=== PATIENT | male | born 1985 | race Caucasian/White ===

== ENCOUNTER 2016-08-15 05:41 | Day surgery (SDC) | payer OTHER ==
[2016-08-06 13:59] VITALS: BMI 32.9
--- NOTE | 2016-08-15 06:47 | HP ---
Admitting History and Physical - Admission History of Present Illness: patient is a 31 y/o male with a past medical history of anxiety and depression, patient presents for ECT his last ECT was 07/30/16. patient reports a decrease in his noritryptyline. he reports feelings of depression and suicidal ideation. However, pt reports he does not have a plan. he denies any visual or auditory hallucinations or homicidal ideation. patient denies any recent illnesses or hospitalization. History Source: Patient Limitations to Obtaining History: No Limitations - Past Medical History Cardiovascular: Yes: Murmur, Other - Smoking History Smoking history: Former smoker Have you smoked in the past 12 months: No If you are a former smoker, when did you quit?: 2014 - Alcohol/Substance Use Hx Alcohol Use: No (NONE IN 3 YRS/ADMITTED DRINKING WAS A PROBLEM) History of Substance Use: reports: Marijuana - Social History Usual Living Arrangement: Yes: With Spouse ADL: Independent History of Recent Travel: No Home Medications - Allergies Allergies/Adverse Reactions: Allergies Allergy/AdvReac Type Severity Reaction Status Date / Time No Known Drug Allergies Allergy Verified 07/10/16 06:24 - Home Medications Home Medications: Ambulatory Orders Cariprazine HCl [Vraylar] 3 mg PO HS 06/06/16 Clonazepam [Klonopin] 2 mg PO PRN PRN 06/06/16 Nortriptyline HCl 150 mg PO HS 06/06/16 Lisdexamfetamine Dimesylate [Vyvanse] 70 mg PO DAILY 06/07/16 Family Disease History - Family Disease History Family Disease History: Other: Father Review of Systems - Review of Systems Constitutional: reports: No Symptoms Eyes: reports: No Symptoms HENT: reports: No Symptoms Neck: reports: No Symptoms Cardiovascular: reports: No Symptoms Respiratory: reports: No Symptoms Gastrointestinal: reports: No Symptoms Genitourinary: reports: No Symptoms Breasts: reports: No Symptoms Reported Musculoskeletal: reports: No Symptoms Integumentary: reports: No Symptoms Neurological: reports: No Symptoms Endocrine: reports: No Symptoms Hematology/Lymphatic: reports: No Symptoms Psychiatric: reports: No Symptoms Physical Examination Constitutional: Yes: Well Nourished, No Distress Eyes: Yes: WNL, Conjunctiva Clear, EOM Intact HENT: Yes: WNL, Atraumatic, Normocephalic Neck: Yes: WNL, Supple, Trachea Midline Cardiovascular: Yes: WNL, Regular Rate and Rhythm, S1, S2 Respiratory: Yes: WNL, Regular, CTA Bilaterally Gastrointestinal: Yes: WNL, Normal Bowel Sounds, Soft ...Rectal Exam: Yes: Deferred Renal/: Yes: WNL Musculoskeletal: Yes: WNL Extremities: Yes: WNL Edema: No Peripheral Pulses WNL: Yes Integumentary: Yes: WNL Neurological: Yes: WNL, Alert, Oriented ...Motor Strength: WNL Psychiatric: Yes: WNL, Alert, Oriented Labs: reviewed 06/07/16 Imaging - Results EKG: Report Reviewed, Other (nsr with no ectopy) Assessment/Plan pt is a 31 y/o male, that presents for ECT. pt has received ect in the past and denies any adverse reaction to anesthesia. labs and ekg reviewed pt is low risk for procedure informed consent, risks/benefits to be obtained by Dr Candelario
[2016-08-15 06:48] VITALS: TEMP 98.2
[2016-08-15] MEDS ORDERED: KETAMINE HCL 500 MG/10 ML VIAL ONE (07:50)
[2016-08-15] MEDS ORDERED: ONDANSETRON 4 MG/2 ML VIAL IVPUSH PRN ×2 (08:42→09:59)
[2016-08-15] MEDS ORDERED: LACTATED RINGERS SOLUTION 1,000 ML IV SCH ×2 (08:45→09:00)
[2016-08-15 09:14] VITALS: PULSE 80
[2016-08-15 09:16] VITALS: BP 121/69
[2016-08-15] MEDS ORDERED: PROMETHAZINE HCL 25 MG/1 ML VIAL IVPUSH PRN (10:00)
== END 2016-08-15 09:10 | disposition home or self-care (01) ==
LOC: FECT 05:41
PROVIDERS: ATTEND Psychiatry & Neurology Psychiatry
PROC: GZB4ZZZ Other Electroconvulsive Therapy (ICD-10-PCS; principal; 2016-08-15 07:00)
DX: F33.2 Major depressive disorder, recurrent severe without psychotic features (principal)
CPT/HCPCS: 90870; 94760

== ENCOUNTER 2016-08-27 05:38 | Day surgery (SDC) | payer OTHER ==
[2016-08-20 11:37] VITALS: BMI 32.9
[2016-08-27] MEDS ORDERED: LACTATED RINGERS SOLUTION 1,000 ML IV SCH (08:15)
[2016-08-27 08:41] VITALS: TEMP 97.7
[2016-08-27 08:47] VITALS: BP 120/69; PULSE 79
== END 2016-08-27 08:18 | disposition home or self-care (01) ==
LOC: FECT 05:38
PROVIDERS: ATTEND Psychiatry & Neurology Psychiatry
PROC: GZB4ZZZ Other Electroconvulsive Therapy (ICD-10-PCS; principal; 2016-08-27 07:45)
DX: F33.2 Major depressive disorder, recurrent severe without psychotic features (principal)
CPT/HCPCS: 90870; 94760

== ENCOUNTER 2016-09-03 05:43 | Day surgery (SDC) | payer OTHER ==
[2016-08-27 11:32] VITALS: BMI 32.9
[2016-09-03] MEDS ORDERED: KETAMINE HCL 500 MG/10 ML VIAL ONE (06:55)
[2016-09-03] MEDS ORDERED: LACTATED RINGERS SOLUTION 1,000 ML IV SCH (08:00)
[2016-09-03 08:05] VITALS: TEMP 99.1
[2016-09-03 08:32] VITALS: BP 141/81; PULSE 77
== END 2016-09-03 08:30 | disposition home or self-care (01) ==
LOC: FECT 05:43
PROVIDERS: ATTEND Psychiatry & Neurology Psychiatry
PROC: GZB4ZZZ Other Electroconvulsive Therapy (ICD-10-PCS; principal; 2016-09-03 07:45)
DX: F33.2 Major depressive disorder, recurrent severe without psychotic features (principal)
CPT/HCPCS: 90870; 94760

== ENCOUNTER 2016-09-10 05:42 | Day surgery (SDC) | payer OTHER ==
[2016-09-03 16:25] VITALS: BMI 32.9
[2016-09-10 06:08] VITALS: TEMP 98.1
[2016-09-10] MEDS ORDERED: KETAMINE HCL 500 MG/10 ML VIAL ONE (06:57)
[2016-09-10 08:17] VITALS: BP 142/82; PULSE 82
== END 2016-09-10 08:15 | disposition home or self-care (01) ==
LOC: FECT 05:42
PROVIDERS: ATTEND Psychiatry & Neurology Psychiatry
PROC: GZB4ZZZ Other Electroconvulsive Therapy (ICD-10-PCS; principal; 2016-09-10 07:45)
DX: F33.2 Major depressive disorder, recurrent severe without psychotic features (principal)
CPT/HCPCS: 90870; 94760

== ENCOUNTER 2018-12-08 06:19 | Day surgery (SDC) | payer OTHER ==
[2018-12-08 07:09] VITALS: BMI 28.8
[2018-12-08] MEDS ORDERED: KETAMINE HCL 500 MG/10 ML VIAL ONE (07:59)
[2018-12-08 08:05] LABS: BASO % 0.5 % (0-2.0); EOS % 4.2 % (0-4.5); HEMATOCRIT 47.6 % (35.4-49); HEMOGLOBIN 16.6 GM/dl (11.7-16.9); LYMPH % 25.9 % (8-40); MCH 33.5 pg (25.7-33.7); MCHC 34.8 g/dl (32.0-35.9); MEAN CELL VOLUME 96.2 fl (80-96); MEAN PLT VOLUME 8.8 fl (7.5-11.1); MONO % 7.1 % (3.8-10.2); NEUT % 62.3 % (42.8-82.8); PLATELET COUNT 163 K/MM3 (134-434); RBC 4.95 M/mm3 (4.00-5.60); RDW 12.1 % (11.9-15.9); WHITE BLOOD COUNT 5.9 K/mm3 (4.0-10.8)
[2018-12-08 08:13] LABS: ALBUMIN 4.3 g/dl (3.4-5.0); ALK PHOS 55 U/L (45-117); ANION GAP 11 MMOL/L (8-16); BILIRUBIN,TOTAL 0.9 mg/dl (0.2-1); BLOOD UREA NITROGEN 14 mg/dl (7-18); CALCIUM 9.1 mg/dl (8.5-10); CHLORIDE 105 mmol/L (98-107); CO2 24 mmol/L (21-32); CREATININE 0.9 mg/dl (0.55-1.3); GLUCOSE,RANDOM 97 mg/dl (74-106); SGOT/AST 25 U/L (15-37); SGPT/ALT 22 U/L (13-61); SODIUM 140 mmol/L (136-145); TOT PROT 6.9 g/dl (6.4-8.2)
[2018-12-08 09:50] VITALS: TEMP 98.3
[2018-12-08 10:12] VITALS: BP 129/83; PULSE 79
[2018-12-08] MEDS ORDERED: ONDANSETRON 4 MG/2 ML VIAL IVPUSH PRN (11:48)
[2018-12-08] MEDS ORDERED: LACTATED RINGERS SOLUTION 1,000 ML IV SCH (12:00)
--- NOTE | 2018-12-08 15:08 | EKG ---
Test Reason : Blood Pressure : / mmHG Vent. Rate : 083 BPM Atrial Rate : 083 BPM P-R Int : 164 ms QRS Dur : 088 ms QT Int : 354 ms P-R-T Axes : 042 053 049 degrees QTc Int : 415 ms NORMAL SINUS RHYTHM POSSIBLE ANTERIOR INFARCT , AGE UNDETERMINED ABNORMAL ECG NO PREVIOUS ECGS AVAILABLE Confirmed by MD VERONICA, BJORN ([id number]) on 12/08/2018 3:07:58 PM Referred By: Ashutosh Candelario Confirmed By:BJORN MARTIN MD
--- NOTE | 2018-12-08 17:05 | HP ---
CHIEF COMPLAINT: Major Depressive Disorder PCP: Obed Orellana Primary Psychiatrist: Obed Elizabeth HISTORY OF PRESENT ILLNESS: 33 year-old male with a PMH significant for major depressive disorder. Patient previously received ECT here at [facility] in [id number]. He returns today for ECT. Recent Events: * none reported PAST MEDICAL HISTORY: Major depressive disorder PAST SURGICAL HISTORY: Right knee arthroscopy Social History: "artist" Smoking: quit 2013 Alcohol: occasional Drugs: +marijuana use Allergies No Known Drug Allergies Allergy (Verified 07/10/16 06:24) HOME MEDICATIONS: Home Medications Medication Instructions Recorded Cariprazine HCl [Vraylar] 3 mg PO HS 06/06/16 Clonazepam [Klonopin] 2 mg PO PRN PRN 06/06/16 Lisdexamfetamine Dimesylate 70 mg PO DAILY 06/07/16 [Vyvanse] Levomilnacipran HCl [Fetzima] 80 mg PO DAILY 09/03/16 REVIEW OF SYSTEMS CONSTITUTIONAL: Absent: fever, chills, diaphoresis, generalized weakness, malaise, loss of appetite, weight change HEENT: Absent: rhinorrhea, nasal congestion, throat pain, throat swelling, difficulty swallowing, mouth swelling, ear pain, eye pain, visual changes CARDIOVASCULAR: Absent: chest pain, syncope, palpitations, irregular heart rate, lightheadedness , peripheral edema RESPIRATORY: Absent: cough, shortness of breath, dyspnea with exertion, orthopnea, wheezing, stridor, hemoptysis GASTROINTESTINAL: Absent: abdominal pain, abdominal distension, nausea, vomiting, diarrhea, constipation, melena, hematochezia GENITOURINARY: Absent: dysuria, frequency, urgency, hesitancy, hematuria, flank pain, genital pain MUSCULOSKELETAL: Absent: myalgia, arthralgia, joint swelling, back pain, neck pain SKIN: Absent: rash, itching, pallor HEMATOLOGIC/IMMUNOLOGIC: Absent: easy bleeding, easy bruising, lymphadenopathy, frequent infections ENDOCRINE: Absent: unexplained weight gain, unexplained weight loss, heat intolerance, cold intolerance NEUROLOGIC: Absent: headache, focal weakness or paresthesias, dizziness, unsteady gait, seizure, mental status changes, bladder or bowel incontinence PHYSICAL EXAMINATION Vital Signs - 24 hr 12/08/18 12/08/18 12/08/18 07:02 08:17 08:22 Temperature 97.4 F L Pulse Rate 82 84 84 Respiratory 18 16 13 Rate Blood Pressure 121/76 147/87 136/73 O2 Sat by Pulse 95 94 L 94 L Oximetry (%) 12/08/18 12/08/18 12/08/18 08:27 08:32 08:45 Temperature Pulse Rate 84 87 89 Respiratory 16 13 14 Rate Blood Pressure 134/81 131/81 133/83 O2 Sat by Pulse 95 95 94 L Oximetry (%) 12/08/18 12/08/18 12/08/18 09:15 09:30 09:35 Temperature 98.3 F Pulse Rate 82 83 82 Respiratory 21 H 12 18 Rate Blood Pressure 129/81 128/79 134/79 O2 Sat by Pulse 95 95 95 Oximetry (%) 12/08/18 12/08/18 10:11 10:12 Temperature 98.3 F Pulse Rate 79 79 Respiratory 18 18 Rate Blood Pressure 129/83 129/83 O2 Sat by Pulse 96 Oximetry (%) GENERAL: Awake, alert, and fully oriented, in no acute distress. HEAD: Normal with no signs of trauma. EYES: Pupils equal, round and reactive to light, sclera anicteric, conjunctiva clear. LUNGS: Breath sounds equal, clear to auscultation bilaterally. No wheezes, and no crackles. No accessory muscle use. HEART: Regular rate and rhythm, normal S1 and S2 ABDOMEN: Soft, nontender, not distended MUSCULOSKELETAL: Normal range of motion at all joints. No bony deformities or tenderness. No CVA tenderness. UPPER EXTREMITIES: 2+ pulses, warm, well-perfused. No cyanosis. No clubbing. No peripheral edema. LOWER EXTREMITIES: 2+ pulses, warm, well-perfused. No calf tenderness. No peripheral edema. NEUROLOGICAL: Cranial nerves II-XII intact. Normal speech. Laboratory Results - last 24 hr 12/08/18 12/08/18 07:10 07:10 WBC 5.9 RBC 4.95 Hgb 16.6 Hct 47.6 MCV 96.2 H MCH 33.5 MCHC 34.8 RDW 12.1 Plt Count 163 MPV 8.8 Absolute Neuts (auto) 3.8 Neutrophils % 62.3 Lymphocytes % 25.9 Monocytes % 7.1 Eosinophils % 4.2 Basophils % 0.5 Sodium 140 Potassium 4.0 Chloride 105 Carbon Dioxide 24 Anion Gap 11 BUN 14 Creatinine 0.9 Creat Clearance w eGFR 97.18 Random Glucose 97 Calcium 9.1 Total Bilirubin 0.9 AST 25 ALT 22 Alkaline Phosphatase 55 Total Protein 6.9 Albumin 4.3 ASSESSMENT/PLAN: 33 year-old male with a PMH significant for major depressive disorder. Presents today for ECT. Cardiac --no cardiac history --Revised Cardiac Risk Index for Pre-Operative Risk: 0 points, 0.4% risk of major cardiac event Pulmonary --no pulmonary history Neurological --no neurological or neurosurgical history; no history of trauma Anesthesia --no reported problems with anesthesia ECT is a low risk procedure. The relative benefits of the planned procedure outweigh the relative risks for this patient at this time. Visit type - Emergency Visit Emergency Visit: No - New Patient This patient is new to me today: Yes Date on this admission: 12/09/18 - Critical Care Critical Care patient: No
== END 2018-12-08 10:14 | disposition home or self-care (01) ==
LOC: FECT 06:19
PROVIDERS: ATTEND Psychiatry & Neurology Psychiatry
PROC: GZB4ZZZ Other Electroconvulsive Therapy (ICD-10-PCS; principal; 2018-12-08 07:45)
DX: F33.2 Major depressive disorder, recurrent severe without psychotic features (principal)
CPT/HCPCS: 36415; 80053; 85025; 90870; 93005; 94760

== ENCOUNTER 2018-12-09 05:41 | Day surgery (SDC) | payer OTHER ==
[2018-12-08 10:23] VITALS: BMI 28.8
[2018-12-09] MEDS ORDERED: KETAMINE HCL SYRINGES 150 MG/3 ML ONE (06:54)
[2018-12-09] MEDS ORDERED: ONDANSETRON 4 MG/2 ML VIAL IVPUSH PRN (07:47)
[2018-12-09] MEDS ORDERED: oxyCODONE HCL 5 MG TABLET PO PRN ×2 (07:47)
[2018-12-09 08:02] VITALS: PULSE 76; TEMP 97.5
[2018-12-09 08:37] VITALS: BP 139/74
== END 2018-12-09 08:20 | disposition home or self-care (01) ==
LOC: FECT 05:41
PROVIDERS: ATTEND Psychiatry & Neurology Psychiatry
PROC: GZB4ZZZ Other Electroconvulsive Therapy (ICD-10-PCS; principal; 2018-12-09 07:30)
DX: F33.2 Major depressive disorder, recurrent severe without psychotic features (principal)
CPT/HCPCS: 90870; 94760

== ENCOUNTER 2018-12-11 05:45 | Day surgery (SDC) | payer OTHER ==
[2018-12-08 10:28] VITALS: BMI 28.8
[2018-12-11] MEDS ORDERED: KETAMINE HCL 500 MG/10 ML VIAL ONE (06:56)
[2018-12-11 08:02] VITALS: TEMP 98.2
[2018-12-11 08:21] VITALS: BP 132/74; PULSE 82
== END 2018-12-11 08:26 | disposition home or self-care (01) ==
LOC: FECT 05:45
PROVIDERS: ATTEND Psychiatry & Neurology Psychiatry
PROC: GZB4ZZZ Other Electroconvulsive Therapy (ICD-10-PCS; principal; 2018-12-11 07:15)
DX: F33.2 Major depressive disorder, recurrent severe without psychotic features (principal)
CPT/HCPCS: 90870; 94760

== ENCOUNTER 2018-12-21 05:41 | Day surgery (SDC) | payer OTHER ==
[2018-12-14 12:10] VITALS: BMI 28.8
[2018-12-21 06:29] VITALS: TEMP 97.8
[2018-12-21] MEDS ORDERED: KETAMINE HCL 500 MG/10 ML VIAL ONE (06:56)
[2018-12-21 08:00] VITALS: PULSE 82
[2018-12-21 08:32] VITALS: BP 127/82
== END 2018-12-21 08:34 | disposition home or self-care (01) ==
LOC: FECT 05:41
PROVIDERS: ATTEND Psychiatry & Neurology Psychiatry
PROC: GZB4ZZZ Other Electroconvulsive Therapy (ICD-10-PCS; principal; 2018-12-21 07:45)
DX: F33.2 Major depressive disorder, recurrent severe without psychotic features (principal)
CPT/HCPCS: 90870; 94760

== ENCOUNTER 2018-12-23 05:38 | Day surgery (SDC) | payer OTHER ==
[2018-12-23 06:25] VITALS: TEMP 98.2; BMI 28.7
[2018-12-23] MEDS ORDERED: KETAMINE HCL 500 MG/10 ML VIAL ONE (06:46)
[2018-12-23] MEDS ORDERED: oxyCODONE HCL 5 MG TABLET PO PRN ×2 (06:49)
[2018-12-23 08:23] VITALS: BP 137/76; PULSE 79
== END 2018-12-23 08:30 | disposition home or self-care (01) ==
LOC: FECT 05:38
PROVIDERS: ATTEND Psychiatry & Neurology Psychiatry
PROC: GZB4ZZZ Other Electroconvulsive Therapy (ICD-10-PCS; principal; 2018-12-23 07:00)
DX: F32.9 Major depressive disorder, single episode, unspecified (principal)
CPT/HCPCS: 90870; 94760

== ENCOUNTER 2018-12-25 05:39 | Day surgery (SDC) | payer OTHER ==
[2018-12-25 06:27] VITALS: TEMP 97.7; BMI 28.7
[2018-12-25] MEDS ORDERED: KETAMINE HCL 500 MG/10 ML VIAL ONE (06:42)
[2018-12-25 08:15] VITALS: BP 133/78; PULSE 79
[2018-12-25] MEDS ORDERED: ONDANSETRON 4 MG/2 ML VIAL IVPUSH PRN (09:41)
[2018-12-25] MEDS ORDERED: LACTATED RINGERS SOLUTION 1,000 ML IV SCH (09:45)
== END 2018-12-25 08:16 | disposition home or self-care (01) ==
LOC: FECT 05:39
PROVIDERS: ATTEND Psychiatry & Neurology Psychiatry
PROC: GZB4ZZZ Other Electroconvulsive Therapy (ICD-10-PCS; principal; 2018-12-25 07:00)
DX: F32.9 Major depressive disorder, single episode, unspecified (principal)
CPT/HCPCS: 90870; 94760

== ENCOUNTER 2018-12-28 05:43 | Day surgery (SDC) | payer OTHER ==
[2018-12-28 06:42] VITALS: TEMP 98.3; BMI 28.7
[2018-12-28] MEDS ORDERED: KETAMINE HCL 500 MG/10 ML VIAL ONE (07:04)
[2018-12-28 08:38] VITALS: BP 126/70; PULSE 72
== END 2018-12-28 09:05 | disposition home or self-care (01) ==
LOC: FECT 05:43
PROVIDERS: ATTEND Psychiatry & Neurology Psychiatry
PROC: GZB4ZZZ Other Electroconvulsive Therapy (ICD-10-PCS; principal; 2018-12-28 07:15)
DX: F33.2 Major depressive disorder, recurrent severe without psychotic features (principal)
CPT/HCPCS: 90870; 94760

== ENCOUNTER 2018-12-30 05:37 | Day surgery (SDC) | payer OTHER ==
[2018-12-30 06:25] VITALS: BMI 28.7
[2018-12-30] MEDS ORDERED: KETAMINE HCL 500 MG/10 ML VIAL ONE (06:51)
[2018-12-30 07:55] VITALS: TEMP 98
[2018-12-30 08:18] VITALS: BP 124/71
[2018-12-30 08:23] VITALS: PULSE 82
== END 2018-12-30 08:23 | disposition home or self-care (01) ==
LOC: FECT 05:37
PROVIDERS: ATTEND Psychiatry & Neurology Psychiatry
PROC: GZB4ZZZ Other Electroconvulsive Therapy (ICD-10-PCS; principal; 2018-12-30 07:00)
DX: F32.9 Major depressive disorder, single episode, unspecified (principal)
CPT/HCPCS: 90870; 94760

== ENCOUNTER 2019-01-01 05:40 | Day surgery (SDC) | payer OTHER ==
[2019-01-01 06:31] VITALS: TEMP 98.4; BMI 28.5
[2019-01-01] MEDS ORDERED: KETAMINE HCL 500 MG/10 ML VIAL ONE (07:15)
[2019-01-01] MEDS ORDERED: ONDANSETRON 4 MG/2 ML VIAL IVPUSH PRN (08:24)
[2019-01-01] MEDS ORDERED: ACETAMINOPHEN 325 MG TABLET (FP) PO PRN (08:24)
[2019-01-01 08:26] VITALS: BP 122/72; PULSE 82
[2019-01-01] MEDS ORDERED: LACTATED RINGERS SOLUTION 1,000 ML IV SCH (08:30)
== END 2019-01-01 08:30 | disposition home or self-care (01) ==
LOC: FECT 05:40
PROVIDERS: ATTEND Psychiatry & Neurology Psychiatry
PROC: GZB4ZZZ Other Electroconvulsive Therapy (ICD-10-PCS; principal; 2019-01-01 07:00)
DX: F32.9 Major depressive disorder, single episode, unspecified (principal)
CPT/HCPCS: 90870; 94760

== ENCOUNTER 2019-01-06 05:47 | Day surgery (SDC) | payer OTHER | END 2019-01-06 08:30 | disposition home or self-care (01) | LOC: FECT 05:47 ==

== ENCOUNTER 2019-01-08 05:36 | Day surgery (SDC) | payer OTHER | END 2019-01-08 09:00 | disposition home or self-care (01) | LOC: FECT 05:36 | PROC: GZB4ZZZ Other Electroconvulsive Therapy (ICD-10-PCS; principal; 2019-01-08 07:00) | DX: F33.2 Major depressive disorder, recurrent severe without psychotic features (principal) ==

== ENCOUNTER 2019-01-11 05:33 | Day surgery (SDC) | payer OTHER | END 2019-01-11 09:00 | disposition home or self-care (01) | LOC: FECT 05:33 ==

== ENCOUNTER 2019-01-13 05:53 | Day surgery (SDC) | payer OTHER | END 2019-01-13 08:30 | disposition home or self-care (01) | LOC: FECT 05:53 ==

== ENCOUNTER 2019-01-15 05:41 | Day surgery (SDC) | payer OTHER | END 2019-01-15 08:30 | disposition home or self-care (01) | LOC: FECT 05:41 ==

== ENCOUNTER 2019-01-18 05:43 | Day surgery (SDC) | payer OTHER | END 2019-01-18 08:30 | disposition home or self-care (01) | LOC: FECT 05:43 ==

== ENCOUNTER 2019-01-22 05:36 | Day surgery (SDC) | payer OTHER | END 2019-01-22 08:29 | disposition home or self-care (01) | LOC: FECT 05:36 ==

== ENCOUNTER 2019-01-27 05:46 | Day surgery (SDC) | payer OTHER ==
[~2019-01-27 05:46] MED LIST: ONDANSETRON 4 MG/2 ML VIAL IVPUSH PRN; oxyCODONE HCL 5 MG TABLET PO PRN
[2019-01-27 06:38] VITALS: BMI 27.7
[2019-01-27] MEDS ORDERED: KETAMINE HCL 500 MG/10 ML VIAL ONE (06:58)
[2019-01-27] MEDS ORDERED: ACETAMINOPHEN 325 MG TABLET (FP) PO PRN (08:08)
[2019-01-27] MEDS ORDERED: PROMETHAZINE HCL 25 MG/1 ML VIAL IVPUSH PRN (08:08)
[2019-01-27] MEDS ORDERED: LACTATED RINGERS SOLUTION 1,000 ML IV SCH (08:15)
[2019-01-27 08:21] VITALS: TEMP 98.4
[2019-01-27 08:46] VITALS: BP 122/81; PULSE 78
== END 2019-01-27 08:49 | disposition home or self-care (01) ==
LOC: FECT 05:46
PROVIDERS: ATTEND Psychiatry & Neurology Psychiatry
PROC: GZB4ZZZ Other Electroconvulsive Therapy (ICD-10-PCS; principal; 2019-01-27 07:30)
DX: F32.9 Major depressive disorder, single episode, unspecified (principal)
CPT/HCPCS: 90870; 94760

== ENCOUNTER 2019-02-01 05:52 | Day surgery (SDC) | payer OTHER ==
[~2019-02-01 05:52] MED LIST changes: +LACTATED RINGERS SOLUTION 1,000 ML IV SCH; -ONDANSETRON 4 MG/2 ML VIAL IVPUSH PRN; -oxyCODONE HCL 5 MG TABLET PO PRN
[2019-02-01 07:02] VITALS: BMI 27.7
[2019-02-01] MEDS ORDERED: KETAMINE HCL 500 MG/10 ML VIAL ONE (07:11)
[2019-02-01 08:20] VITALS: TEMP 98.8
[2019-02-01 08:48] VITALS: BP 129/79; PULSE 88
== END 2019-02-01 08:50 | disposition home or self-care (01) ==
LOC: FECT 05:52
PROVIDERS: ATTEND Psychiatry & Neurology Psychiatry
PROC: GZB4ZZZ Other Electroconvulsive Therapy (ICD-10-PCS; principal; 2019-02-01 08:15)
DX: F33.2 Major depressive disorder, recurrent severe without psychotic features (principal)
CPT/HCPCS: 90870; 94760

== ENCOUNTER 2019-02-04 05:47 | Day surgery (SDC) | payer OTHER ==
[2019-02-01 14:35] VITALS: BMI 27.7
[2019-02-04] MEDS ORDERED: KETAMINE HCL 500 MG/10 ML VIAL ONE (07:23)
[2019-02-04 08:37] VITALS: TEMP 97.7
--- NOTE | 2019-02-04 09:00 | HP ---
CHIEF COMPLAINT: Major Depressive Disorder PCP: Obed Orellana Primary Psychiatrist: bOed Elizabeth HISTORY OF PRESENT ILLNESS: 33 year-old male with a PMH significant for major depressive disorder. Patient previously received ECT here at [facility] in [id number]. He returns today for ECT. Recent Events: * none reported PAST MEDICAL HISTORY: Major depressive disorder PAST SURGICAL HISTORY: Right knee arthroscopy Social History: artist Allergies No Known Drug Allergies Allergy (Verified 01/08/19 06:48) HOME MEDICATIONS: Home Medications Medication Instructions Recorded Cariprazine HCl [Vraylar] 3 mg PO HS 06/06/16 Clonazepam [Klonopin] 2 mg PO PRN PRN 06/06/16 Lisdexamfetamine Dimesylate 70 mg PO DAILY 06/07/16 [Vyvanse] Levomilnacipran HCl [Fetzima] 80 mg PO HS 09/03/16 REVIEW OF SYSTEMS CONSTITUTIONAL: Absent: fever, chills, diaphoresis, generalized weakness, malaise, loss of appetite, weight change HEENT: Absent: rhinorrhea, nasal congestion, throat pain, throat swelling, difficulty swallowing, mouth swelling, ear pain, eye pain, visual changes CARDIOVASCULAR: Absent: chest pain, syncope, palpitations, irregular heart rate, lightheadedness , peripheral edema RESPIRATORY: Absent: cough, shortness of breath, dyspnea with exertion, orthopnea, wheezing, stridor, hemoptysis GASTROINTESTINAL: Absent: abdominal pain, abdominal distension, nausea, vomiting, diarrhea, constipation, melena, hematochezia GENITOURINARY: Absent: dysuria, frequency, urgency, hesitancy, hematuria, flank pain, genital pain MUSCULOSKELETAL: Absent: myalgia, arthralgia, joint swelling, back pain, neck pain SKIN: Absent: rash, itching, pallor HEMATOLOGIC/IMMUNOLOGIC: Absent: easy bleeding, easy bruising, lymphadenopathy, frequent infections ENDOCRINE: Absent: unexplained weight gain, unexplained weight loss, heat intolerance, cold intolerance NEUROLOGIC: Absent: headache, focal weakness or paresthesias, dizziness, unsteady gait, seizure, mental status changes, bladder or bowel incontinence PHYSICAL EXAMINATION Vital Signs - 24 hr 02/04/19 02/04/19 02/04/19 06:35 08:05 08:10 Temperature 98.0 F Pulse Rate 73 84 83 Respiratory 18 17 16 Rate Blood Pressure 129/71 146/95 130/75 O2 Sat by Pulse 97 97 95 Oximetry (%) 02/04/19 02/04/19 02/04/19 08:15 08:20 08:30 Temperature Pulse Rate 78 76 75 Respiratory 15 14 14 Rate Blood Pressure 129/73 128/75 128/78 O2 Sat by Pulse 97 96 96 Oximetry (%) 02/04/19 08:36 Temperature 97.7 F Pulse Rate 71 Respiratory 18 Rate Blood Pressure 124/78 O2 Sat by Pulse 96 Oximetry (%) GENERAL: Awake, alert, and fully oriented, in no acute distress. HEAD: Normal with no signs of trauma. EYES: Pupils equal, round and reactive to light, sclera anicteric, conjunctiva clear. LUNGS: Breath sounds equal, clear to auscultation bilaterally. No wheezes, and no crackles. No accessory muscle use. HEART: Regular rate and rhythm, normal S1 and S2 ABDOMEN: Soft, nontender, not distended MUSCULOSKELETAL: Normal range of motion at all joints. No bony deformities or tenderness. No CVA tenderness. UPPER EXTREMITIES: 2+ pulses, warm, well-perfused. No cyanosis. No clubbing. No peripheral edema. LOWER EXTREMITIES: 2+ pulses, warm, well-perfused. No calf tenderness. No peripheral edema. NEUROLOGICAL: Cranial nerves II-XII intact. Normal speech. ASSESSMENT/PLAN: 33 year-old male with a PMH significant for major depressive disorder. Presents today for ECT. Cardiac --no cardiac history --Revised Cardiac Risk Index for Pre-Operative Risk: 0 points, 0.4% risk of major cardiac event Pulmonary --no pulmonary history Neurological --no neurological or neurosurgical history; no history of trauma Anesthesia --no reported problems with anesthesia ECT is a low risk procedure. The relative benefits of the planned procedure outweigh the relative risks for this patient at this time. Visit type - Emergency Visit Emergency Visit: No - New Patient This patient is new to me today: Yes Date on this admission: 02/04/19 - Critical Care Critical Care patient: No
[2019-02-04 09:10] VITALS: BP 122/76; PULSE 78
== END 2019-02-04 09:12 | disposition home or self-care (01) ==
LOC: FECT 05:47
PROVIDERS: ATTEND Psychiatry & Neurology Psychiatry
PROC: GZB4ZZZ Other Electroconvulsive Therapy (ICD-10-PCS; principal; 2019-02-04 08:00)
DX: F32.9 Major depressive disorder, single episode, unspecified (principal)
CPT/HCPCS: 90870; 94760

== ENCOUNTER 2019-02-09 05:40 | Day surgery (SDC) | payer OTHER ==
[2019-02-01 16:02] VITALS: BMI 27.7
[2019-02-09] MEDS ORDERED: KETAMINE HCL 500 MG/10 ML VIAL ONE (07:13)
[2019-02-09 08:26] VITALS: TEMP 97.8
[2019-02-09 08:35] VITALS: BP 124/76; PULSE 72
== END 2019-02-09 08:38 | disposition home or self-care (01) ==
LOC: FECT 05:40
PROVIDERS: ATTEND Psychiatry & Neurology Psychiatry
PROC: GZB4ZZZ Other Electroconvulsive Therapy (ICD-10-PCS; principal; 2019-02-09 07:45)
DX: F32.9 Major depressive disorder, single episode, unspecified (principal)
CPT/HCPCS: 90870; 94760